=== PATIENT | female | born 1950 | race Caucasian/White ===

== ENCOUNTER → 2021-03-18 09:56 | Outpatient (CLI) | payer OTHER, SELFPAY ==
--- NOTE | ~2021-03-18 | DEXA_ITS ---
Bone Density Report Name: SLOAN CEBALLOS Age: 70 Sex: Female Ethnicity: White Date of : 1950 Indication: postmenopausal; screening for osteoporosis; parental hip fracture; Referring Provider: Edu, Keesha Study: Bone densitometry was performed. Exam Date: March 18, 2021 Accession number: [id number] Bone Density: Region BMD T-score Z-score Classification AP Spine (L1-L4) 1.061 0.1 2.2 Normal Femoral Neck (Left) 0.807 -0.4 1.4 Normal Total Hip (Left) 1.035 0.8 2.2 Normal Femoral Neck (Right) 0.770 -0.7 1.1 Normal Total Hip (Right) 0.990 0.4 1.9 Normal Total Hip Mean 1.013 0.6 2.1 Normal World Health Organization criteria for BMD impression classify patients as: Normal (T-score at or above -1.0), Osteopenia (T-score between -1.0 and -2.5), or Osteoporosis (T-score at or below -2.5). 10-year Fracture Risk: FRAX not reported because: All T-scores for Spine Total, Hip Total, Femoral Neck at or above -1.0 Clinical Information Provided by Patient: Parent has had a hip fracture Has used the following medications: Vitamin D Patient maximum height was 64 Menopause Age: 46 Does not regularly consume dairy products Drinks caffeinated beverages Onset of menses at age 14 Number of children 2 Impression: The patient has normal bone mass. The patient has risk factors, including: parental hip fracture. Discussion: BONE DENSITY IS ABOVE THE MINIMUM DESIRABLE LEVEL AT ALL SKELETAL SITES TESTED. This patient?s bone mineral density is above the minimum desirable level (T-score -1.0 or better) at all sites measured. The patient should follow a healthful lifestyle (good nutrition with adequate calcium and vitamin D, and appropriate weight-bearing exercise). Follow-Up: Consider repeating this study in 5 years or sooner if there is some new clinical indication. Reported by: ASYA on 03/18/2021 10:17:00 AM. Reviewed, dictated and finalized at location Miguel BARNEY
== END ==
PROVIDERS: PCP Internal Medicine; Visit Provider Internal Medicine
DX: Z78.0 Asymptomatic menopausal state (principal)
CPT/HCPCS: 77080

== ENCOUNTER 2022-11-18 13:05 | Outpatient (CLI) | payer MEDICARE, SELFPAY ==
--- NOTE | ~2022-11-18 | US_ITS ---
EXAMINATION: US thyroid DATE: 11/18/2022 13:40 INDICATION: Abnormal thyroid function tests. TECHNIQUE: Multiple ultrasound images of the thyroid were obtained. COMPARISON: None. FINDINGS: The right thyroid lobe measures 6.4 x 1.6 x 2.5 cm cm. The left thyroid lobe measures 7.6 x 3.5 x 4. 2 cm cm. In the right thyroid lobe, there is a 2.1 cm solid, isoechoic, wider than tall nodule with ill-defined margin without echogenic foci (TI-RADS TR3). In the left thyroid lobe, there is a 4.7 cm solid, isoechoic, wider than tall nodule with smooth margin without echogenic foci (TR3). IMPRESSION: 1. Multinodular goiter. Ultrasound-guided fine-needle aspiration of the 4.7 cm left thyroid nodule is recommended. Reviewed, dictated and finalized at location E.
== END 2022-11-18 13:06 | disposition home or self-care (01) ==
PROVIDERS: PCP Internal Medicine; Visit Provider Internal Medicine
DX: R94.6 Abnormal results of thyroid function studies (principal); E04.2 Nontoxic multinodular goiter
CPT/HCPCS: 76536

== ENCOUNTER 2023-12-30 14:16 | Outpatient (CLI) | payer MEDICARE, SELFPAY ==
[2023-12-30 15:04] LABS: Alanine Aminotransferase 29 U/L (6-35); Aspartate Amino Transferase 32 U/L (14-36)
== END 2023-12-30 14:17 | disposition home or self-care (01) ==
LOC: ANHLAB 14:18
PROVIDERS: PCP Internal Medicine; Visit Provider Podiatrist Foot & Ankle Surgery
DX: B35.1 Tinea unguium (principal)
CPT/HCPCS: 36415; 84450; 84460

== ENCOUNTER 2024-03-29 14:16 | Outpatient (CLI) | payer MEDICARE, SELFPAY ==
[2024-03-29 15:00] LABS: Alanine Aminotransferase 26 U/L (6-35); Aspartate Amino Transferase 25 U/L (14-36)
--- OUTSIDE RECORDS SUMMARY | 2024-03-29 15:07 | XMS_ITS | Clinical Summary ---
Author Organization [facility] Address [address] [place] [address] Care Team Providers Care Juvenile Counselor Name Role Phone Jayy Herrera MD Unavailable [phone] Keesha Sorensen MD Primary Care Provider [phone] Allergies Active Allergy Reactions Criticality Noted Date Comments Lisinopril Cough Reaction: Cough, Metformin Diarrhea Low 08/02/2020 Medications pen needle, diabetic (UNIFINE PENTIPS) 32 gauge x 5/32 needleIndications:diabe lobito 1 each daily 90 each 3 019 Active Additional Information Patient not taking.Reported on 10/25/2020 vit A/vit C/vit E/zinc/copper (PRESERVISION AREDS ORAL) Take by mouth daily Active Lactobacillus acidophilus (Probiotic) 10 billion cell capsule Take by mouth daily Active blood glucose diagnostic stripIndications:diabet es Please check your blood sugar before each meal(breakfast , lunch, dinner) and before bedtime. 120 each 3 021 Active chlorthalidone 25 mg tabletIndications:Hyper tension associated with diabetes (HCC) Take 1 tablet (25 mg total) by mouth daily 90 tablet 1 021 Active empagliflozin (JARDIANCE) 10 mg tabletIndications:type 2 diabetes mellitus Take 1 tablet (10 mg total) by mouth daily 90 tablet 1 021 Active losartan (COZAAR) 25 mg tabletIndications:Hyper tension associated with diabetes (HCC),Type 2 diabetes mellitus with hyperglycemia, without long-term current use of insulin (HCC) Take 1 tablet (25 mg total) by mouth daily 90 tablet 1 021 Active metoprolol XL (TOPROL-XL) 50 mg extended release tabletIndications:Hyper tension associated with diabetes (HCC) Take 1.5 tablets (75 mg total) by mouth daily 135 tablet 1 021 Active lancets (OneTouch Delica Plus Lancet) 33 gauge miscIndications:Type 2 diabetes mellitus with hyperglycemia, without long-term current use of insulin (HCC) Use one device daily for testing. 100 each 3 021 Active rosuvastatin (CRESTOR) 5 mg tabletIndications:Dysli pidemia with low high density lipoprotein (HDL) cholesterol with hypertriglyceridemia due to type 2 diabetes mellitus (HCC) Take 1 tablet (5 mg total) by mouth nightly 90 tablet 1 021 Active glipiZIDE (GLUCOTROL) 5 mg tabletIndications:type 2 diabetes mellitus Take 1 tablet (5 mg total) by mouth daily before dinner 30 tablet 5 021 Active Active Problems Problem Noted Date Diagnosed Date Chronic rhinitis 07/19/2020 Type 2 diabetes mellitus wit h hyperglycemia, without long-term current use of insulin 12/22/2018 Assessment & Plan (10/25/2020 11:49 AM CDT): Diagnosed in 2019 Had diarrhea on Metformin Control : in good control A1c 6.5% on 10/25/20 A1c 6.8% on 08/02/20 Kidney: normal GFR 78 on 08/02/20 Neuropathy : none. Plan: Patient to work on weight loss. Continue Glipizide 5 mg Qpm Continue jardiance 10 mg Qam Monitor sugars once /day and target am sugars 90-130 Hypoglycemia symptoms and treatment reviewed with patient. Call if having low sugars. Ophthalmology exam on regular basis. Assessment & Plan (08/02/2020 11:29 AM CDT): Diagnosed in 2019 Had diarrhea on Metformin Control : hyperglycemia since been off Glipizide A1c 6.8% on 08/02/20 Kidney: normal kidney functions in February/2020 Neuropathy : none. Plan: Refer patient to dietitian. Patient to work on weight loss. Restart Glipizide 5 mg Qpm Continue jardiance 10 mg Qam Monitor sugars once /day and target am sugars 90-130 Hypoglycemia symptoms and treatment reviewed with patient. Call if having low sugars. Ophthalmology exam on regular basis. Assessment & Plan (07/24/2020 7:49 PM CDT): A1c at goal of < 8.0. Cont current meds. Referred to Endocrinology per patient's request. Assessment & Plan (03/06/2020 5:15 PM SAP SOLUTIONS ARCHITECT): Pertinent diabetes labs reviewed: Lab Results Component Value Date HGBA1C 6.7 (H) 11/29/2019 GLUCOSE 114 11/29/2019 CREATININE 0.93 11/29/2019 LDL 116 (H) 11/18/2014 LDLCALC 55 08/25/2019 MALBCRTRAT 22.0 02/25/2018 Good. No new recommendations. Continue current medication for now. Assessment & Plan (11/29/2019 4:56 PM CDT): Discussed medication. Last A1c was great / much improved: Lab Results Component Value Date HGBA1C 6.8 (H) 08/25/2019 HGBA1C 12.0 (H) 12/22/2018 HGBA1C 7.9 (H) 02/25/2018 Talked about glipizide and the obesity-worsening effects without any benefit in terms of renal or cardiac protection. Try stopping glipizide but continue Jardiance. Might consider semaglutide if she needs to be started back on something besides glipizide. Assessment & Plan (08/25/2019 10:13 AM CDT): Check labs. See under morbid obesity -- consider medication adjustments. Assessment & Plan (01/26/2019 5:59 PM SAP SOLUTIONS ARCHITECT): Patient was taking her insulin 10 units tonight. However she stop taking the metformin because of diarrhea. And she has been off of the metformin for a month. So today I changed her over to synjardy which is a combination medication to see if it will help without the diarrhea. Assessment & Plan (12/29/2018 11:12 AM SAP SOLUTIONS ARCHITECT): Patient is currently taking metformin 500 mg twice a day we will increase that to a 1000 mg twice a day in a couple of weeks. She is also taking Lantus insulin 10 units daily. She is working on eating only 40 carbs per meal per day. Systolic murmur 08/26/2017 Assessment & Plan (03/06/2020 5:14 PM SAP SOLUTIONS ARCHITECT): Still present on exam today, no worse. Echo was surprisingly normal. Assessment & Plan (08/26/2017 10:00 AM CDT): Undiagnosed with strong family Hx of valvular disease. Bicuspid aortic? Get EKG today and TTE / Doppler to evaluate further. Generalized osteoarthritis 07/02/2013 Overview (05/22/2016): GENERAL OSTEOARTHROSIS Class 3 severe obesity due t o excess calories with serious comorbidity and body mass index (BMI) of 45.0 to 49.9 in adult 07/02/2013 Overview (07/19/2020): Assessment & Plan (07/24/2020 7:50 PM CDT): Weight reduction, daily exercise and dietary modifications recommended. Assessment & Plan (08/25/2019 10:13 AM CDT): BMI Follow-up includes: nutrition counseling, exercise counseling and education provided. She is counting her carbs and cals and doing well with that, disappointed she hasn't lost any weight. We discussed the fact that glipizide likely has everything to do with that. She is going to check with insurance to see if she might be able to get one of the GLP-1 or SGLT agents instead. Doesn't want Januvia or anything like it -- it gave her pancreatitis and he got pancreatic cancer a few years later. Assessment & Plan (01/26/2019 5:58 PM SAP SOLUTIONS ARCHITECT): Obesity is unchanged. Discussed the patient's BMI. The BMI is above average; BMI management plan is completed. General weight loss/lifestyle modification strategies discussed (elicit support from others; identify saboteurs; non-food rewards, etc). Assessment & Plan (12/29/2018 11:11 AM SAP SOLUTIONS ARCHITECT): Obesity is unchanged. Discussed the patient's BMI. The BMI is above average; BMI management plan is completed. General weight loss/lifestyle modification strategies discussed (elicit support from others; identify saboteurs; non-food rewards, etc). Assessment & Plan (03/07/2018 9:07 PM SAP SOLUTIONS ARCHITECT): Aware / working on weight loss. First noted 2013. BMI Follow-up includes: nutrition counseling, exercise counseling and education provided. Assessment & Plan (08/26/2017 10:01 AM CDT): BMI Follow-up includes: nutrition counseling, exercise counseling and education provided. Working on increased exercise now that she has had bilateral TKR. Assessment & Plan (07/28/2016 8:59 PM CDT): Obesity is unchanged. Increase exercise as tolerated; continue healthy diet. Regular aerobic exercise program discussed. Hypertension associated with diabetes 07/02/2013 Overview (07/24/2020): Assessment & Plan (10/25/2020 11:50 AM CDT): Controlled with medication - low salt diet - continue medication per PCP Assessment & Plan (08/02/2020 11:30 AM CDT): Controlled with medication - low salt diet - continue medication per PCP Assessment & Plan (07/24/2020 7:48 PM CDT): Clinically improved, continue current meds. Dyslipidemia with low high d ensity lipoprotein (HDL) cholesterol with hypertriglyceridemia due to type 2 diabetes mellitus 07/02/2013 Overview (07/19/2020): Assessment & Plan (07/24/2020 7:49 PM CDT): LDL not yet at goal of <70. Low chol diet recommended. Cont current meds. Assessment & Plan (03/06/2020 5:15 PM SAP SOLUTIONS ARCHITECT): Most recent lipid profile reviewed: Lab Results Component Value Date CHOL 134 08/25/2019 TRIG 230 (H) 08/25/2019 HDL 33 (L) 08/25/2019 LDL 116 (H) 11/18/2014 LDLCALC 55 08/25/2019 The current medical regimen is effective; continue present plan and medications. Assessment & Plan (11/29/2019 4:53 PM CDT): Most recent lipid profile reviewed: Lab Results Component Value Date CHOL 134 08/25/2019 TRIG 230 (H) 08/25/2019 HDL 33 (L) 08/25/2019 LDL 116 (H) 11/18/2014 LDLCALC 55 08/25/2019 Pretty good response to rosuvastatin. Triglycerides likely reflect intermittent hyperglycemia. Continue current medication for now. Assessment & Plan (08/25/2019 10:10 AM CDT): Most recent lipid profile reviewed: Lab Results Component Value Date CHOL 149 12/23/2018 TRIG 231 (H) 12/23/2018 HDL 35 (L) 12/23/2018 LDL 116 (H) 11/18/2014 LDLCALC 68 12/23/2018 Will repeat labs. Try to keep LDL ~70, no more than 100. Continue rosuvastatin. Assessment & Plan (01/26/2019 5:58 PM SAP SOLUTIONS ARCHITECT): Started on Crestor not only for cholesterol but for her diabetes. Assessment & Plan (12/29/2018 11:11 AM SAP SOLUTIONS ARCHITECT): Will start a statin at this time. Will sent prescription to pharmacy. Assessment & Plan (08/26/2017 10:02 AM CDT): Most recent lipid profile reviewed: Lab Results Component Value Date CHOL 228 (H) 07/28/2016 TRIG 246 (H) 07/28/2016 HDL 41 07/28/2016 LDL 116 (H) 11/18/2014 LDLCALC 137.80 (H) 07/28/2016 Based on this last set of lipids I would recommend going back on a statin, but we'll check lipids again today before making a decision. Assessment & Plan (07/28/2016 5:39 PM CDT): Lipid abnormalities are unchanged. Pharmacotherapy as ordered. Lipids will be reassessed in 1 year. Osteoarthritis of knee 02/16/2009 Overview (05/22/2016): Knee osteoarthritis Resolved Problems Problem Noted Date Diagnosed Date Resolved Date Transition of care performed with sharing of clinical summary 12/29/2018 08/25/2019 Assessment & Plan (12/29/2018 11:12 AM SAP SOLUTIONS ARCHITECT): I, Elizabeth Majano, SENIOR POLICY ANALYST have personally reviewed pertinent Hospital/ER data including [employer] and Care Everywhere if available. This patient's discharge medication list has been reviewed and reconciled with her medication list in the office chart and has also been reviewed with patient and/or caregiver. I have noted any changes. Generalized abdominal pain 12/21/2018 1 02/28/2018 Umbilical hernia with obstru ction, without gangrene 12/21/2018 08/25/2019 Assessment & Plan (12/21/2018 12:27 PM SAP SOLUTIONS ARCHITECT): Discussed with Dr. Holden. Send to the ER. Umbilical hernia with obstru ction, without gangrene 12/21/2018 12/29/2018 SBO (small bowel obstruction) (CMS/[facility]) 12/21/2018 08/25/2019 BMI 45.0-49.9, adult 08/26/201707/19/ 021 Assessment & Plan (03/06/2020 5:13 PM SAP SOLUTIONS ARCHITECT): .BMI Follow-up includes: nutrition counseling, exercise counseling and education provided . Assessment & Plan (11/29/2019 1:44 PM CDT): BMI Follow-up includes: nutrition counseling, exercise counseling and education provided. Assessment & Plan (01/26/2019 5:58 PM SAP SOLUTIONS ARCHITECT): Body mass index is 43.77 kg/m . BMI Follow-up includes: nutrition counseling, exercise counseling and education provided. Assessment & Plan (12/29/2018 11:09 AM SAP SOLUTIONS ARCHITECT): Body mass index is 43.78 kg/m . BMI Follow-up includes: nutrition counseling, exercise counseling and education provided. Assessment & Plan (03/07/2018 9:09 PM SAP SOLUTIONS ARCHITECT): BMI Follow-up includes: nutrition counseling, exercise counseling and education provided. Impaired fasting glucose 06/26/200810/2019 Overview (05/22/2016): IMPAIRED FASTING GLUCOSE Assessment & Plan (03/07/2018 9:08 PM SAP SOLUTIONS ARCHITECT): Lab Results Component Value Date HGBA1C 7.9 (H) 02/25/2018 HGBA1C 7.3 (H) 08/26/2017 HGBA1C 6.7 (H) 07/28/2016 Progressed now firmly into type 2 DM territory. Will need to start on metformin. Allergic to ACEI (lisinopril) -- contraindicated. Assessment & Plan (08/26/2017 10:02 AM CDT): Lab Results Component Value Date HGBA1C 6.7 (H) 07/28/2016 Recheck today. Start metformin if worse. Assessment & Plan (07/28/2016 5:38 PM CDT): A1c today. Current medications have been reviewed and will be continued. Continue improving lifestyle changes. Benign essential hypertension 02/16/1998 07/19/2020 Overview (05/23/2016): Benign essential HTN Assessment & Plan (03/06/2020 5:15 PM SAP SOLUTIONS ARCHITECT): Continued fair control on current regimen (chlorthalidone + metoprolol). Assessment & Plan (11/29/2019 4:52 PM CDT): Blood pressure 120/70, pulse 78, height 160 cm (5' 2.99 ), weight 115.7 kg (255 lb), SpO2 98 %, not currently . The current medical regimen is effective; continue present plan and medications. Assessment & Plan (08/25/2019 10:10 AM CDT): Blood pressure 120/78, pulse 85, height 160 cm (5' 2.99 ), weight 113.9 kg (251 lb), SpO2 97 %, not currently . The current medical regimen is effective; continue present plan and medications. Assessment & Plan (01/26/2019 5:57 PM SAP SOLUTIONS ARCHITECT): BP 136/80 (BP Location: Left arm, Patient Position: Sitting) Pulse 74 Temp 36.1 C (97 F) Resp 16 Ht 160 cm (5' 2.99 ) Wt 112 kg (247 lb) SpO2 98% BMI 43.77 kg/m Patient was not taking losartan or her Crestor until I explained to her why these medications were needed. She has agreed to start taking them. Assessment & Plan (12/29/2018 11:10 AM SAP SOLUTIONS ARCHITECT): BP 134/80 (BP Location: Right arm, Patient Position: Sitting) Pulse 80 Temp 36.1 C (97 F) Resp 17 Ht 160 cm (5' 2.99 ) Wt 112.1 kg (247 lb 1.6 oz) SpO2 98% BMI 43.78 kg/m Blood pressure is good today. Will start a low-dose Arb patient is allergic to an Michael inhibitor secondary to her diabetes. Will also start 81 mg aspirin. Assessment & Plan (03/07/2018 9:09 PM SAP SOLUTIONS ARCHITECT): Blood pressure 160/100, pulse 67, resp. rate 15, height 161.3 cm (5' 3.5 ), weight 126.1 kg (278 lb), SpO2 98 %, not currently . BP too high -- will need to work on this too. Assessment & Plan (08/26/2017 10:03 AM CDT): Cannot determine whether this is well controlled because she didn't take her AM medications before coming in. Assessment & Plan (07/28/2016 5:38 PM CDT): Hypertension is unchanged. Continue current treatment regimen. Blood pressure will be reassessed at the next regular appointment. Incarcerated hernia 07/20/19 21 Immunizations Name Administration Dates Next Due Influenza, Trivalent, IM (MDV) 11/07/2013 Influenza, Unspecified 11/29/2019(Deferr ed: Patient Refused),11/29/2019(Deferred: Patient Refused),11/17/2019(Deferred: Patient Refused),11/28/2015 Pfizer SARS-CoV-2 Monovalent Vaccination (12+ Yrs) PURPLE 04/21/2020,03/31/2020 Pneumococcal Polysaccharide PPV23 10/17/2014 Td, adsorbed 11/29/1998 Surgical History Surgery Date Site/Laterality Comments HEMORRHOID SURGERY HEMORRHOIDECTOMY OTHER SURGICAL HISTORY 02/16/1997 - 02/15/1998 D&C OTHER SURGICAL HISTORY fissure in rectum: repair OTHER SURGICAL HISTORY Menometrorrhagia: D&C REPLACEMENT TOTAL KNEE 02/16/2014 - 02/15/2015 Bilateral HERNIA REPAIR 02/16/2018 - 02/15/2019 Medical History Medical History Date Comments Hypertension Hypertension Hyperlipidemia Hyperlipidemia Osteoarthritis Osteoarthritis Hx Other Medical 1981 fissure in rect um; Outcome: successful Hx Other Medical 1998 Menometrorrhagi a; Outcome: free of disease Umbilical hernia with obstru ction, without gangrene 12/21/2018 Diabetes mellitus (HCC) Family History Medical History Relation Name Comments Other Father heart valve pro blem; Prostate cancer Father Valvular heart disease Father VALVU LAR HEART DISEASE; Hypertension Maternal Grandmother Other Maternal Grandmother old age ; Cause of : old age Thyroid disease Maternal Grandmother Thyr oid disorder; Hypertension Mother Macular degeneration Mother macular degeneration; Other Mother back problems; /thyroid mass; Thyroid disease Mother Thyroid diso rder; Hypothyroidism Other Family histor y of Hypothyroidism; Hyperthyroidism Sister 2 Hyperthyroid ism; Obesity Sister 3 Obesity; Obesity Sister 4 Obesity; [facility] Hyperthyroidism Sister 5 Hyperthyroid ism; radioactive iodine [facility] 07/28/2013 -[place] Other Son 2 Alive and well; [facility] 07/28/2013 -[place] Obesity Son 3 Obesity; [facility] [place] Relation Name Status Comments Father Maternal Grandmother (Age 106) Mother Other Sister 1 Alive Sister 2 Sister 3 Sister 4 Sister 5 Son 1 Alive Son 2 Son 3 Social History Tobacco Use Types Packs/Day Years Used Date Smoking Tobacco: Never Smokeless Tobacco: Never Tobacco Cessation:Counseling Given: No Alcohol Use Standard Drinks/Week Comments Yes 0 (1 standard drink = 0.6 oz pur e alcohol) PHQ-2 Answer Date Recorded PHQ-2 Total Score (If total score is 3 or more points, staff should administer the PHQ-9) 0 07/19/2020 Comments Unknown Sex and Gender Information Value Date Recorded Sex Assigned at Not on file Legal Sex Female 11:47 AM SAP SOLUTIONS ARCHITECT Gender Identity Not on file Sexual Orientation Not on file Obstetrics History Last Filed Vital Signs Vital Sign Reading Time Taken Comments Blood Pressure 136/68 10/25/2020 10:43 AM CDT Pulse 87 07/19/2020 10:17 AM CDT Temperature 36.4 C (97.5 F) 07/19/2020 10:17 AM CDT Respiratory Rate 20 07/19/2020 10:17 AM CDT Oxygen Saturation 96% 07/19/2020 10:17 AM CDT Inhaled Oxygen Concentration - - Weight 115.9 kg (255 lb 8 oz) 10/25/2020 10:43 A M CDT Height 157.5 cm (5' 2 ) 10/25/2020 10:43 AM CDT Body Mass Index 46.73 10/25/2020 10:43 AM CDT Plan of Treatment Health Maintenance Due Date Last Done Comments Osteoporosis Screening-Bone Density Scan 1950 Hepatitis B Screening 07/09/1969 DTaP/Tdap/Td Vaccine (1 - Tdap) 11/30/1998 9 Zoster Vaccine (1 of 2) 07/09/2001 Well Visit 65+ 08/24/2020 08/25/2019, 07/28/2016 Hemoglobin A1C 04/24/2021 10/25/2020, 07/17, 08/02/2020, Additional history exists Depression Screening 07/19/2021 07/19/2020, 03/06/2020, 11/29/2019, Additional history exists Fall Risk Assessment 07/19/2021 07/19/2020, 03/06/2020, 11/29/2019, Additional history exists Foot Exam 07/19/2021 07/19/2020, 02/16, 11/29/2019, Additional history exists Albumin Creatinine Ratio, Urine 08/02/2021 08/02/2020, 03/06/2020, 08/25/2019, Additional history exists eGFR 08/02/2021 08/02/2020, 02/16, 11/29/2019, Additional history exists Lipid Panel 12/18/2021 12/18/2020, 07/17, 08/25/2019, Additional history exists Dilated Eye Exam 03/08/2022 03/08/2020, 06/02/2018 Covid-19 Vaccine (2023- 5 season) 2023 04/21/2020, 03/31/2020 Colon Cancer Screening-Colonoscopy 07/29/2026 07/29/2016 Pneumococcal vaccine 65+ Discontinued 10/17/2014 Influenza Vaccine Discontinued 11/28/2015, 11/07/2013 Breast Cancer Screening-Mammogram Discontinued 017 Colon Cancer Screening-CT Colonography Discontinued 07/29/2016 Colon Cancer Screening-DNA Stool Discontinued 07/30/19 17 Colon Cancer Screening-FIT Discontinued 07/29/2016 Colon Cancer Screening-Sigmoidoscopy Discontinued 07/29/2016 Hepatitis C Screening Completed 08/25/2019 Procedures Procedure Name Priority Date/Time Associated Diagnosis Comments POCT HEMOGLOBIN A1C Routine 10/25/2020 11:31 AM CDT Type 2 diabetes mellitus with hyperglycemia, without long-term current use of insulin (CMS/HCC) (HCC) EGFR Routine 08/02/2020 11:28 AM CDT Hypertension associated with diabetes (CMS/HCC) Dyslipidemia with low high density lipoprotein (HDL) cholesterol with hypertriglyceridemia due to type 2 diabetes mellitus (CMS/HCC) LIPID PANEL Routine 08/02/2020 11:28 AM CDT Hypertension associated with diabetes (CMS/HCC) Dyslipidemia with low high density lipoprotein (HDL) cholesterol with hypertriglyceridemia due to type 2 diabetes mellitus (CMS/HCC) Type 2 diabetes mellitus with hyperglycemia, without long-term current use of insulin (CMS/HCC) ALBUMIN CREATININE RATIO, URINE Routine 08/02/2020 11:28 AM CDT Hypertension associated with diabetes (CMS/HCC) Type 2 diabetes mellitus with hyperglycemia, without long-term current use of insulin (CMS/HCC) DIABETIC EYE EXAM Routine 03/08/2020 HEPATITIS C ANTIBODY Routine 08/25/2019 10:11 AM CDT Need for hepatitis C screening test DIABETES FOOT EXAM Routine 12/29/2018 MAMMOGRAPHY Routine 07/29/2016 COLONOSCOPY Routine 07/29/2016 from Last 3 Months or Most Recently Relevant to Health Maintenance Results * POCT hemoglobin A1c (10/25/2020 11:31 AM CDT) Hemoglobin A1C, POC 6.5 Blood specimen (specimen) 10/25/2020 11:31 AM CDT Zuleyka Alexander MD POINT OF CARE TEST ORDERABLES Final Result * eGFR (08/02/2020 11:28 AM CDT) eGFR 78 mL/min/1.7 3 m2 [facility] ([place]) Comment: Interpretive Data Reference Interval Normal >/= 90 mL/min/1.73m2 Mildly decreased* 60 - 89 mL/min/1.73m2 Mildly to moderately decreased 45 - 59 mL/min/1.73m2 Moderately to severely decreased 30 - 44 mL/min/1.73m2 Severely decreased 15 - 29 mL/min/1.73m2 Kidney Failure < 15 mL/min/1.73m2 *Relative to young adult level Estimated glomerular filtration rate is determined by the CKD-EPI equation recommended by the National Kidney Foundation (KDIGO 2012 Clinical Practice Guideline for the Evaluation and Management of Chronic Kidney Disease. Kidney Intnl Suppl Feb 2012;3:1). The CKD-EPI equation should not be used for patients with unstable renal function and has not been validated in children and those over 70. Current interpretive data was last reviewed 2020 Blood specimen (specimen) 08/02/2020 11:28 AM CDT 08/02/2020 1:28 PM CDT Sharmila Carter DO LAB BLOOD ORDERABLES Final Result Performing Organization Address [facility] de Phone Number [facility] ([place]) [address] [place] [address] * Albumin Creatinine Ratio, Urine (08/02/2020 11:28 AM CDT) Albumin Ur <12.0 mg/L [facility] ([place]) Comment: Interpretive Data No reference range established. Current interpretive data was last revised 2018. Testing performed by: [facility], [address] [place] [address]., [id number] Creatinine Ur 80.1 mg/dL [facility] ([place]) Comment: Interpretive Data No reference range established. Current interpretive data was last revised 2018. Testing performed by: [facility], [address] [place] [address]., [id number] Albumin Creatinine Ratio, Ur <15 1 - 29 mg/g [facility] ([place]) Comment:Testing performed by : [facility], [address] [place] [address]., [id number] Urine 08/02/2020 11:2 8 AM CDT 08/02/2020 7:42 PM CDT Sharmila Carter DO LAB URINE ORDERABLES Final Result Performing Organization Address [facility] de Phone Number [facility] ([place]) [address] [facility] [place] [address] * (ABNORMAL) Lipid panel (08/02/2020 11:28 AM CDT) Cholesterol 162 30 - 199 mg/dL [facility] ([place]) Comment: Interpretive Data Ages < or = 19 years Acceptable: <170 mg/dL Borderline high: 170-199 mg/dL High: >or= 200 mg/dL Ages > or = 20 years Desirable: <200 mg/dL Borderline high: 200-239 mg/dL High: >or= 240 mg/dL Literature References: 1. Expert Panel on Integrated Guidelines for Cardiovascular Health and Risk Reduction in Children and Adolescents. Pediatrics 2011;128:S213 2. NCEP Expert Panel. Circulation 2003;110:227 Current Interpretive Data was last revised on 2017. Triglycerides 202(H) <=149 mg/dL [facility] ([place]) Comment: Interpretive Data Ages < or = 9 years Acceptable: <75 mg/dL Borderline high: 75-99 mg/dL High: >or= 100 mg/dL Ages 10 to 20 years Acceptable: <90 mg/dL Borderline high: 90-129 mg/dL High: >or= 130 mg/dL Ages > or = 20 years Desirable: <150 mg/dL Borderline high: 150-199 mg/dL High: 200-499 mg/dL Very high: >or= 499 mg/dL Literature References: 1. Expert Panel on Integrated Guidelines for Cardiovascular Health and Risk Reduction in Children and Adolescents. Pediatrics 2011;128:S213 2. NCEP Expert Panel. Circulation 2003;110:227 Current Interpretive Data was last revised on 2017. HDL 39(L) >=40 mg/dL BRYAN OROZCO (CLAUDIO) Comment: Interpretive Data Ages < or = 19 years Acceptable: >45 mg/dL Borderline low: 40-45 mg/dL Low: <40 mg/dL Ages > or = 20 years Desirable: >or= 60 mg/dL Low: <40 mg/dL Literature References: 1. Expert Panel on Integrated Guidelines for Cardiovascular Health and Risk Reduction in Children and Adolescents. Pediatrics 2011;128:S213 2. NCEP Expert Panel. Circulation 2003;110:227 Current Interpretive Data was last revised on 2017. LDL, calculated 83 <=129 mg/dL BRYAN OROZCO (CLAUDIO) Comment: Interpretive Data Ages < or = 19 years Acceptable: <110 mg/dL Borderline high: 110-129 mg/dL High: >or= 130 mg/dL Ages > or = 20 years Optimal: <100 mg/dL Near optimal: 100-129 mg/dL Borderline high: 130-159 mg/dL High: >160 mg/dL Literature References: 1. Expert Panel on Integrated Guidelines for Cardiovascular Health and Risk Reduction in Children and Adolescents. Pediatrics 2011;128:S213 2. NCEP Expert Panel. Circulation 2003;110:227 Current Interpretive Data was last revised on 2017. Non-HDL Cholesterol 123 mg/dL BRYAN OROZCO (EMORY) Comment: Interpretive Data Ages < or = 19 years Acceptable: <120 mg/dL Borderline high: 120-144 mg/dL High: >145 mg/dL Ages > or = 20 years When triglycerides are >200 mg/dL, Non-HDL cholesterol is a secondary target of therapy with treatment goals that are 30 mg/dL greater than the LDL cholesterol target. Literature References: 1. Expert Panel on Integrated Guidelines for Cardiovascular Health and Risk Reduction in Children and Adolescents. Pediatrics 2011;128:S213 2. NCEP Expert Panel. Circulation 2004;110:227 Current Interpretive Data was last revised on 2017. Chol/HDL ratio 4 CM OROZCO (EMORY) Blood specimen (specimen) 08/02/2020 11:28 AM CDT 08/02/2020 1:28 PM CDT Sharmila Carter DO LAB BLOOD ORDERABLES Final Result SARITAJG OROZCO (EMORY) 1 [facility] Department [place] [address] * Diabetic Eye Exam (03/08/2020) Historical Provider HEALTH MAINTENANCE Final Result * Hepatitis C antibody (08/25/2019 10:11 AM CDT) Hep C Ab Nonreactive Nonreactive BRYAN [facility] Comment: Interpretive Data Nonreactive: Antibodies to HCV not detected. Does NOT exclude the possibility of recent exposure to HCV. Equivocal: Equivocal for HCV antibodies. Supplemental molecular testing will be automatically performed to determine infection status in accordance with current CDC screening recommendations. Reactive: Positive for HCV antibodies. This may represent current or past HCV infection. Supplemental molecular testing will be automatically performed to determine current infection status in accordance with current CDC screening recommendations. Interpretive data was last revised on 2019. Testing performed by: [facility], [facility] [facility], [place]., [address] Blood specimen (specimen) 08/25/2019 10:11 AM CDT 08/25/2019 4:15 PM CDT Alberto Holden MD LAB MICROBIOLOGY - GENERAL ORD ERABLES Final Result BRYAN [facility] [address] Department [place] [address] * DIABETES FOOT EXAM (12/29/2018) Diabetic Foot Exam Normal Historical Provider HEALTH MAINTENANCE Final Result * COLONOSCOPY (07/29/2016) Colonoscopy Unknown Comment:Patient cannot recal l. Anatomical Region Laterality Modality Other Historical Provider HEALTH MAINTENANCE Final Result * MAMMOGRAPHY (07/29/2016) Mammogram Unknown Comment:Patient declined. Anatomical Region Laterality Modality Other Historical José HYLTON HEALTH MAINTENANCE Final Result from Last 3 Months or Most Recently Relevant to Health Maintenance Insurance [facility] MEDICARE AARP [facility] REF [facility] Address: [address] [address] [place] [address] [facility] Advance Directives For more information, please contact: [phone] * Full Code (Latest Code Status on File) Date Activated Date Inactivated Comments 12/21/2018 6:10 PM 12/24/2018 5:48 PM Care Teams Juvenile Counselor Relationship Specialty Start Date End Date Keesha Sorensen MD [address] [place] [address] PCP - General Internal Medicine 11/27/21 Jayy Herrera MD [address] [facility] / [facility] [address] [address] Referring Physician Ophthalmology 07/19/20
--- OUTSIDE RECORDS SUMMARY | 2024-03-29 15:07 | XMS_ITS | Referral Summary ---
Author Organization [facility] Address [address] [facility] [place] [address] Care Team Providers Care Senior Qualitative Researcher Name Role Phone Renato Mckenzie MD Unavailable [phone] Keesha Sorensen MD Primary Care Provider [phone] Source Comments [facility],non-owned Affiliates and Associated Physician Practices is amultiple site organization consisting of ambulatory clinics and hospital sitesin [place], [place], [place] and [place]. This disclosure is being madepursuant to the Care Everywhere program and may not contain all information available regarding this patient. Last updated 17.[facility] Encounters Date Type Department Care Team Description 12/31/2023 Travel 12/31/2023 11:30 AM HAND HARDENER Office Visit [facility] - SEARCH ENGINE MARKETING STRATEGIST [address] [facility] [address] [place] [id number] Jennifer Bertrand, BOAT LOADER HELPER-HIDE INSPECTOR AND SORTER Endometrial cancer (HCC) (Primary Dx) from Last 3 Months Allergies No known active allergies Medications * Be aware that medications may not be up to date on this document. Alwaysverify current medications with the patient. Medication Sig Dispensed Refills Start Date End Date Status rosuvastatin (Crestor) 5 MG tablet Take 1 (one) tablet by mouth once daily Active LOSARTAN POTASSIUM PO Take 100 mg by mouth once daily Active CHLORTHALIDONE PO Take 25 mg by mouth once daily Active Multiple Vitamins-Minerals (PRESERVISION AREDS PO) Take by mouth once daily Active chlorthalidone (Hygroton) 25 MG tablet 12/01/2022 Active metoprolol succinate XL 24hr (Toprol XL) 50 MG tablet Take 1.5 (one and one-half) tablets by mouth once daily 08/27/2022 Active Rybelsus 14 MG tablet Take 1 (one) tablet by mouth once daily 12/11/2022 Active Active Problems Problem Noted Date Diagnosed Date 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 We will aim for A1c less than 7%. Last Assessment & Plan: Diagnosed in 2019 Had diarrhea on Metformin [...] low sugars. Ophthalmology exam on regular basis. Class 3 severe obesity due t o excess calories with serious comorbidity and body mass index (BMI) of 45.0 to 49.9 in adult 07/02/2013 Overview (04/03/2022): -Pt has elevated weight with BMI Body mass index is 43.77 kg/m ., and will need to work hard on reducing carbohydrates and total calories. -You may use the free smart phone apps such as R17 to help track calories and try to reduce by 15% every 4 weeks. -Patient will work on reducing total portion sizes to try to reduce the size of their stomach. -Exercising about 30 minutes every day with cardio work outs. -Avoid regular soda, juices and alcohol. -Recommended limiting GPS foods (Grains, Potatoes, Sugars) as much as possible. Eating food that it is not highly processed and that they can recognize. Eating when they are hungry and not by a time schedule. -Lets aim to have them loose about 1 pound per week and 5 pounds per month. Last Assessment & Plan: Weight reduction, daily exercise and dietary modifications recommended. Dyslipidemia with low high d ensity lipoprotein (HDL) cholesterol with hypertriglyceridemia due to type 2 diabetes mellitus 07/02/2013 Overview (04/03/2022): On rosuvastatin 20 mg daily; will aim for LDL less than 70; at goal. Last Assessment & Plan: LDL not yet at goal of <70. Low chol diet recommended. Cont current meds. Generalized osteoarthritis 07/02/2013 Overview (04/03/2022): GENERAL OSTEOARTHROSIS GENERAL OSTEOARTHROSIS Hypertension associated with diabetes 07/02/2013 Overview (04/03/2022): Not controlled; continue with metoprolol, chlorthalidone and losartan with close follow up. Last Assessment & Plan: Controlled with medication - low salt diet - continue medication per PCP Osteoarthrosis involving lower leg 2011 Overview (05/12/2015): 2015 IMO Updt Social History Tobacco Use Types Packs/Day Years Used Date Smoking Tobacco: Never Smokeless Tobacco: Never Alcohol Use Standard Drinks/Week Comments Not Currently 0 (1 standard drink = 0.6 oz pur e alcohol) Sex and Gender Information Value Date Recorded Sex Assigned at Not on file Gender Identity Not on file Sexual Orientation Not on file Last Filed Vital Signs Vital Sign Reading Time Taken Comments Blood Pressure 134/72 12/31/2023 11:13 AM HAND HARDENER Pulse - - Temperature - - Respiratory Rate - - Oxygen Saturation - - Inhaled Oxygen Concentration - - Weight 100.5 kg (221 lb 9.6 oz) 024 11:13 AM HAND HARDENER Height 162.6 cm (5' 4 ) 12/31/2023 11:1 3 AM HAND HARDENER Body Mass Index 38.04 12/31/2023 11:13 AM HAND HARDENER Plan of Treatment Upcoming Encounters Date Type Department Care Team (Late st Contact Info) Description 12/29/2024 11:00 AM HAND HARDENER Office Visit [facility] - SEARCH ENGINE MARKETING STRATEGIST [address] [place] [address] Jennifer Bertrand, BOAT LOADER HELPER-HIDE INSPECTOR AND SORTER [address] [facility] [address] [place] [address] Procedures Procedure Name Priority Date/Time Associated Diagnosis Comments BASIC METABOLIC PANEL (CALCIUM TOTAL) 02/15/2007 10:52 AM HAND HARDENER from Last 3 Months or Most Recently Relevant to Health Maintenance Results * (ABNORMAL) BASIC METABOLIC PANEL (CALCIUM TOTAL) (02/15/2007 10:52 AM HAND HARDENER) Glucose 104(H) 65 - 99 mg/dL [facility] Comment:FASTING REFERENCE IN TERVAL BUN 18 7 - 25 mg/dL [facility] Creatinine 0.72 0.50 - 1.20 mg/dL [facility] eGFR by MDRD >60 > OR = 60 mL/min/1.7 3m2 [facility] eGFR by MDRD >60 > OR = 60 mL/min/1.7 3m2 [facility] BUN/Creatinine Ratio 25(H) 6 - 22 (calc) [facility] Sodium 141 135 - 146 mmol/L [facility] Potassium 4.2 3.5 - 5.3 mmol/L [facility] Chloride 105 98 - 110 mmol/L [facility] CO2 29 21 - 33 mmol/L [facility] Calcium 9.3 8.6 - 10.2 mg/dL [facility] Comment: REPORT COMMENT: FASTING Test Performed at: [id number] [address] RENATO CHEUNG MD 02/15/2007 10:5 2 AM HAND HARDENER 02/15/2007 9:44 PM HAND HARDENER Juan R Hoang II, MD LAB - CHEMISTRY ORD ERABLES [facility] [address] [place] [address] from Last 3 Months or Most Recently Relevant to Health Maintenance Administered Medications Care Teams Senior Qualitative Researcher Relationship Specialty Start Date End Date Keesha Sorensen MD [address] [facility] [address] [place] [address] PCP - General 04/02/22 Renato Mckenzie MD Orthopedic Surgery 04/09/11
--- OUTSIDE RECORDS SUMMARY | 2024-03-29 15:07 | XMS_ITS | Clinical Summary ---
Author Organization [facility] Address [address] [place] [address] Care Team Providers Care Diesel Engine Ii Pipe Fitter Name Role Phone Renato Mckenzie MD Unavailable [phone] Keesha Sorensen MD Primary Care Provider [phone] Source Comments [facility],non-owned Affiliates and Associated Physician Practices is amultiple site organization consisting of ambulatory clinics and hospital sitesin [place], [place], [place] and [place]. This disclosure is being madepursuant to the Care Everywhere program and may not contain all information available regarding this patient. Last updated 17.[facility] Allergies No known active allergies Medications * [...] the free smart phone apps such as [employer] to help track calories and try to [...] leg 2011 Overview (05/12/2015): 2015 IMO Updt Encounters Date Type Department Care Team Description 12/31/2023 11:30 AM SAND CARRIER Office Visit [facility] - NURSE RECEPTIONIST [address] [facility] [address] [place] [phone] Jennifer Bertrand, MARIUSZ-MARINE EQUIPMENT SALES ENGINEER Endometrial cancer (HCC) (Primary Dx) 12/31/2023 Travel from Last 3 Months Social History Tobacco Use Types Packs/Day Years [...] Comments Blood Pressure 134/72 12/31/2023 11:13 AM SAND CARRIER Pulse - - Temperature - - Respiratory Rate - - Oxygen Saturation - - Inhaled Oxygen Concentration - - Weight 100.5 kg (221 lb 9.6 oz) 024 11:13 AM SAND CARRIER Height 162.6 cm (5' 4 ) 12/31/2023 11:1 3 AM SAND CARRIER Body Mass Index 38.04 12/31/2023 11:13 AM SAND CARRIER Plan of Treatment Upcoming Encounters Date Type Department Care Team (Late st Contact Info) Description 12/29/2024 11:00 AM SAND CARRIER Office Visit [facility] - NURSE RECEPTIONIST [address] [place] [address] Jennifer Bertrand, HAND PAINT MIXER-MARINE EQUIPMENT SALES ENGINEER [address] [facility] [address] [place] [address] Health Maintenance Due Date Last Done Comments BONE DENSITY TESTING 1950 COLOGUARD (AGES 45-75) - COLON CA SCREENING 1950 COLON MONITORING 1950 COLONOSCOPY - COLON CA SCREENING 1950 CT COLONOGRAPHY - COLON CA SCREENING 1950 Colorectal Cancer Screening 1950 FIT - COLON CA SCREENING 1950 FLEX SIG - COLON CA SCREENING 1950 MAMMOGRAM 1950 HEPATITIS C SCREENING 07/05/1969 DTAP/TDAP/TD VACCINES (1 - Tdap) 07/09/1970 PNEUMOCOCCAL VACCINE 50+ (1 of 2 - PCV) 07/09/1970 ZOSTER VACCINE (1 of 2) 07/09/2001 DIABETES RETINOPATHY SCREENING 04/03/2022 DIABETES-FOOT EXAM WITH MONOFILAMENT 04/03/2022 COVID-19 VACCINE ( season) 2023 12/30/2021, 11/22/2020, 04/21/2020, Additional history exists INFLUENZA VACCINE (#1) 2023 11/28/2015, 2013 DEPRESSION SCREENING 02/17/2024 DIABETES - URINE PROTEIN SCREENING 02/17/2024 02/27/2023, 06/10/2022, 11/23/2020 MEDICARE AWV CALENDAR YEAR 2024 DIABETES-SERUM CREATININE 02/28/20242023, 02/27/2023, 02/27/2023, Additional history exists DIABETES-HGB A1C 03/06/2024 09/04/2023, 01/2024, 06/10/2022, Additional history exists Respiratory Syncytial Virus (RSV) Vaccine Pt: or over 60 yrs (1 - 1-dose 75+ series) 07/09/2026 HEPATITIS B VACCINE Aged Out No longe r eligible based on patient's age to complete this topic HIB VACCINE Aged Out No longer eligi ble based on patient's age to complete this topic HPV VACCINE Aged Out No longer eligi ble based on patient's age to complete this topic MENINGOCOCCAL (Group B) VACCINE Aged Out No longer eligible based on patient's age to complete this topic MENINGOCOCCAL VACCINE Aged Out No denny shalom eligible based on patient's age to complete this topic Procedures Procedure Name Priority Date/Time Associated Diagnosis Comments BASIC METABOLIC PANEL (CALCIUM TOTAL) 02/15/2007 10:52 AM SAND CARRIER from Last 3 Months or Most Recently Relevant to Health Maintenance Results * (ABNORMAL) BASIC METABOLIC PANEL (CALCIUM TOTAL) (02/15/2007 10:52 AM SAND CARRIER) Glucose 104(H) 65 - 99 mg/dL [facility] [...] Comment: REPORT COMMENT: FASTING Test Performed at: [facility] [id number] [place] [address] RENATO CHEUNG MD 02/15/2007 10:5 2 AM SAND CARRIER 02/15/2007 9:44 PM SAND CARRIER Juan R Hoang II, MD LAB - CHEMISTRY ORD ERABLES [facility] Organization Address City/State/ZIP Co de Phone Number [facility] [address] [place] [address] from Last 3 Months or Most Recently Relevant to Health Maintenance Care Teams Diesel Engine Ii Pipe Fitter Relationship Specialty Start Date End Date Keesha Sorensen MD [address] [facility] [address] [place] [address] PCP - General 04/02/22 Renato Mckenzie MD Orthopedic Surgery 04/09/11
--- OUTSIDE RECORDS SUMMARY | 2024-03-29 15:07 | XMS_ITS | Patient Health Summary ---
Author Organization [facility] Address [address] [place] [address] Care Team Providers Care Commercial Diver Name Role Phone Renato Mckenzie MD Unavailable [phone] Keesha Sorensen MD Primary Care Provider [phone] Note from [facility],non-owned Affiliates and Associated Physician Practices is amultiple site organization consisting of ambulatory clinics and hospital sitesin [place], [place], [place] and [place]. This disclosure is being madepursuant to the Care Everywhere program and may not contain all information available regarding this patient. Last updated 17.[facility] Allergies No known active allergies Medications * Be aware that medications may not be up to date on this document. Alwaysverify current medications with the patient. 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 Chronic rhinitis 07/19/2020 Type 2 diabetes mellitus wit h hyperglycemia, without long-term current use of insulin 12/22/2018 Class 3 severe obesity due t o excess calories with serious comorbidity and body mass index (BMI) of 45.0 to 49.9 in adult 07/02/2013 Dyslipidemia with low high d ensity lipoprotein (HDL) cholesterol with hypertriglyceridemia due to type 2 diabetes mellitus 07/02/2013 Generalized osteoarthritis 07/02/2013 Hypertension associated with diabetes 07/02/2013 Osteoarthrosis involving lower leg 2011 Social History Tobacco Use Types Packs/Day Years [...] Comments Blood Pressure 134/72 12/31/2023 11:13 AM FOOD AND NUTRITION TEACHER Pulse - - Temperature - - Respiratory Rate - - Oxygen Saturation - - Inhaled Oxygen Concentration - - Weight 100.5 kg (221 lb 9.6 oz) 024 11:13 AM FOOD AND NUTRITION TEACHER Height 162.6 cm (5' 4 ) 12/31/2023 11:1 3 AM FOOD AND NUTRITION TEACHER Body Mass Index 38.04 12/31/2023 11:13 AM FOOD AND NUTRITION TEACHER Procedures * PATHOLOGY/CYTOLOGY REPORT ORDER(Performed 05/14/2022) * PATHOLOGY/CYTOLOGY REPORT ORDER(Performed 05/14/2022) * PATHOLOGY/CYTOLOGY REPORT ORDER(Performed 05/14/2022) * PATHOLOGY/CYTOLOGY REPORT ORDER(Performed 05/14/2022) * LAB RESULTS ORDER(Performed 05/08/2022) * XR KNEE BILAT 3VW(Performed 08/11/2013) Performed for Osteoarthrosis, unspecified whether generalized or localized, lower leg * BASIC METABOLIC PANEL (CALCIUM TOTAL)(Performed 02/15/2007) * LIPID PROFILE(Performed 02/15/2007) Results * PATHOLOGY/CYTOLOGY REPORT ORDER (05/14/2022) Only the most recent of4 resultswithin the time period is included. 05/14/2022 Narrative 05/14/2022 Ordered by an unspecified provider. Scanned Document LAB - PATHOLOGY/CYTO LOGY ORDERABLES * LAB RESULTS ORDER (05/08/2022) 05/08/2022 Narrative 05/08/2022 Ordered by an unspecified provider. Scanned Document LAB - THERAPEUTIC DR SOSA MONITORING ORDERABLES * XR KNEE BILAT 3 VIEWS (08/11/2013 12:17 PM CDT) Anatomical Region Laterality Modality Lower Extremity Radiographic Chapis ging Narrative 08/11/2013 12:18 PM CDT Anel Otero, RT(R) 08/11/2013 12:18 PM See progress notes for results Andrés Sanchez [facility] ORDERABLES * (ABNORMAL) BASIC METABOLIC PANEL (CALCIUM TOTAL) (02/15/2007 10:52 AM FOOD AND NUTRITION TEACHER) Glucose 104(H) 65 - 99 mg/dL [facility] [...] Comment: REPORT COMMENT: FASTING Test Performed at: [facility] [address] [place] [address] RENATO CHEUNG MD 02/15/2007 10:5 2 AM FOOD AND NUTRITION TEACHER 02/15/2007 9:44 PM FOOD AND NUTRITION TEACHER Juan R Hoang II, MD LAB - CHEMISTRY ORD ERABLES [facility] [address] [place] [address] * (ABNORMAL) LIPID PROFILE (02/15/2007 10:52 AM FOOD AND NUTRITION TEACHER) Triglycerides 150(H) <150 mg/dL [facility] Comment: Test Performed at: [facility] [address] [place] [address] RENATO CHEUNG MD Cholesterol 209(H) 125 - 200 mg/dL [facility] HDL Cholesterol 45 > OR = 40 mg/dL [facility] LDL Calculated 134(H) <130 mg/dL (calc) [facility] Comment: DESIRABLE RANGE <100 MG/DL FOR PATIENTS WITH CHD OR DIABETES AND <70 MG/DL FOR DIABETIC PATIENTS WITH KNOWN HEART DISEASE. CHOL/HDLC RATIO 4.6 < OR = 5.0 (calc) [facility] 02/15/2007 10:5 2 AM FOOD AND NUTRITION TEACHER 02/15/2007 9:44 PM FOOD AND NUTRITION TEACHER Juan R Hoang II, MD LAB - CHEMISTRY ORD ERABLES Performing Organization Address City/State/[facility] Co de Phone Number [facility] [address] [place] [phone] Care Teams Commercial Diver Relationship Specialty Start Date End Date Keesha Sorensen MD [address] [facility] [address] [place] [address] PCP - General 04/02/22 Renato Mckenzie MD Orthopedic Surgery 04/09/11
--- OUTSIDE RECORDS SUMMARY | 2024-03-29 15:07 | XMS_ITS | Referral Summary ---
Author Organization [facility] Address [address] [place] [address] Care Team Providers Care Cable Splicing Technician Name Role Phone Jayy Herrera MD Unavailable [phone] Keesha Sorensen MD Primary Care Provider [phone] Allergies Active Allergy Reactions Criticality Noted Date [...] request. Assessment & Plan (03/06/2020 5:15 PM GAS ENGINE OPERATOR COMPRESSORS): Pertinent diabetes labs reviewed: Lab Results Component [...] adjustments. Assessment & Plan (01/26/2019 5:59 PM GAS ENGINE OPERATOR COMPRESSORS): Patient was taking her insulin 10 units tonight. However she stop taking the metformin because of diarrhea. And she has been off of the metformin for a month. So today I changed her over to synjardy which is a combination medication to see if it will help without the diarrhea. Assessment & Plan (12/29/2018 11:12 AM GAS ENGINE OPERATOR COMPRESSORS): Patient is currently taking metformin 500 mg twice a day we will increase that to a 1000 mg twice a day in a couple of weeks. She is also taking Lantus insulin 10 units daily. She is working on eating only 40 carbs per meal per day. Systolic murmur 08/26/2017 Assessment & Plan (03/06/2020 5:14 PM GAS ENGINE OPERATOR COMPRESSORS): Still present on exam today, no worse. [...] later. Assessment & Plan (01/26/2019 5:58 PM GAS ENGINE OPERATOR COMPRESSORS): Obesity is unchanged. Discussed the patient's BMI. The BMI is above average; BMI management plan is completed. General weight loss/lifestyle modification strategies discussed (elicit support from others; identify saboteurs; non-food rewards, etc). Assessment & Plan (12/29/2018 11:11 AM GAS ENGINE OPERATOR COMPRESSORS): Obesity is unchanged. Discussed the patient's BMI. The BMI is above average; BMI management plan is completed. General weight loss/lifestyle modification strategies discussed (elicit support from others; identify saboteurs; non-food rewards, etc). Assessment & Plan (03/07/2018 9:07 PM GAS ENGINE OPERATOR COMPRESSORS): Aware / working on weight loss. First [...] meds. Assessment & Plan (03/06/2020 5:15 PM GAS ENGINE OPERATOR COMPRESSORS): Most recent lipid profile reviewed: Lab Results [...] rosuvastatin. Assessment & Plan (01/26/2019 5:58 PM GAS ENGINE OPERATOR COMPRESSORS): Started on Crestor not only for cholesterol but for her diabetes. Assessment & Plan (12/29/2018 11:11 AM GAS ENGINE OPERATOR COMPRESSORS): Will start a statin at this time. [...] 08/25/2019 Assessment & Plan (12/29/2018 11:12 AM GAS ENGINE OPERATOR COMPRESSORS): I, Elizabeth Majano, WEB SIZER have personally reviewed pertinent Hospital/ER data including [...] 08/25/2019 Assessment & Plan (12/21/2018 12:27 PM GAS ENGINE OPERATOR COMPRESSORS): Discussed with Dr. Holden. Send to the ER. Umbilical hernia with obstru ction, without gangrene 12/21/2018 12/29/2018 SBO (small bowel obstruction) (CMS/[facility]) 12/21/2018 08/25/2019 BMI 45.0-49.9, adult 08/26/201707/19/ 021 Assessment & Plan (03/06/2020 5:13 PM GAS ENGINE OPERATOR COMPRESSORS): .BMI Follow-up includes: nutrition counseling, exercise counseling and education provided . Assessment & Plan (11/29/2019 1:44 PM CDT): BMI Follow-up includes: nutrition counseling, exercise counseling and education provided. Assessment & Plan (01/26/2019 5:58 PM GAS ENGINE OPERATOR COMPRESSORS): Body mass index is 43.77 kg/m . BMI Follow-up includes: nutrition counseling, exercise counseling and education provided. Assessment & Plan (12/29/2018 11:09 AM GAS ENGINE OPERATOR COMPRESSORS): Body mass index is 43.78 kg/m . BMI Follow-up includes: nutrition counseling, exercise counseling and education provided. Assessment & Plan (03/07/2018 9:09 PM GAS ENGINE OPERATOR COMPRESSORS): BMI Follow-up includes: nutrition counseling, exercise counseling and education provided. Impaired fasting glucose 06/26/200810/2019 Overview (05/22/2016): IMPAIRED FASTING GLUCOSE Assessment & Plan (03/07/2018 9:08 PM GAS ENGINE OPERATOR COMPRESSORS): Lab Results Component Value Date HGBA1C 7.9 [...] HTN Assessment & Plan (03/06/2020 5:15 PM GAS ENGINE OPERATOR COMPRESSORS): Continued fair control on current regimen (chlorthalidone [...] medications. Assessment & Plan (01/26/2019 5:57 PM GAS ENGINE OPERATOR COMPRESSORS): BP 136/80 (BP Location: Left arm, Patient [...] them. Assessment & Plan (12/29/2018 11:10 AM GAS ENGINE OPERATOR COMPRESSORS): BP 134/80 (BP Location: Right arm, Patient [...] aspirin. Assessment & Plan (03/07/2018 9:09 PM GAS ENGINE OPERATOR COMPRESSORS): Blood pressure 160/100, pulse 67, resp. rate [...] Pneumococcal Polysaccharide PPV23 10/17/2014 Td, adsorbed 11/29/1998 Social History Tobacco Use Types Packs/Day Years [...] on file Legal Sex Female 11:47 AM GAS ENGINE OPERATOR COMPRESSORS Gender Identity Not on file Sexual Orientation [...] 10/25/2020 10:43 AM CDT Plan of Treatment Not on file Procedures Procedure Name Priority Date/Time Associated Diagnosis Comments POCT HEMOGLOBIN A1C Routine 10/25/2020 11:31 AM CDT Type 2 diabetes mellitus with hyperglycemia, without long-term current use of insulin ([facility]) (HCC) EGFR Routine 08/02/2020 11:28 AM CDT [...] 11:28 AM CDT 08/02/2020 1:28 PM CDT us Sharmila Carter DO LAB BLOOD ORDERABLES Final Result [facility] ([place]) [address] [facility] [place] [address] * Albumin Creatinine Ratio, Urine (08/02/2020 11:28 AM CDT) Albumin Ur <12.0 mg/L [facility] AM [facility] ([place]) Comment: Interpretive Data No reference range established. Current interpretive data was last revised 2018. Testing performed by: [address] [address] Creatinine Ur 80.1 mg/dL [facility] ([place]) Comment: Interpretive Data No reference range established. Current interpretive data was last revised 2018. Testing performed by: [address] [address] Albumin Creatinine Ratio, Ur <15 1 - 29 mg/g [facility] ([place]) Comment:Testing performed by : [address] [id number] Urine 08/02/2020 11:2 8 AM CDT 08/02/2020 7:42 PM CDT us Sharmila Murillo Raul DO LAB URINE ORDERABLES Final Result [facility] ([place]) [address] [facility] [place] [address] * (ABNORMAL) Lipid panel (08/02/2020 11:28 AM CDT) Cholesterol 162 30 - 199 mg/dL [facility] ([place]) Comment: Interpretive Data [...] 2017. Non-HDL Cholesterol 123 mg/dL [facility] ([place]) Comment: Interpretive Data [...] on 2017. Chol/HDL ratio 4 CM OR[facility] ([place]) Blood specimen (specimen) 08/02/2020 11:28 AM CDT 08/02/2020 1:28 PM CDT us Sharmila Carter DO LAB BLOOD ORDERABLES Final Result BRYAN [facility]ONE[facility]UTT) [address] [facility] [place] [address] * Diabetic Eye Exam (03/08/2020) us Historical Provider HEALTH MAINTENANCE Final Result * Hepatitis C antibody (08/25/2019 10:11 AM CDT) [facility] Hep C Ab Nonreactive Nonreactive [facility] [...] last revised on 2019. Testing performed by: [facility], [address] [place] [address]., [id number] Blood specimen (specimen) 08/25/2019 10:11 AM CDT 08/25/2019 4:15 PM CDT Result [facility] Alberto Holden MD LAB MICROBIOLOGY - GENERAL ORD ERABLES Final Result Performing Organization Address City/State/[facility] Co de Phone Number [facility] [address] [facility] Department [place] [address] * DIABETES FOOT EXAM (12/29/2018) [facility] Diabetic Foot Exam Normal Result [facility] Provider HEALTH MAINTENANCE Final Result * COLONOSCOPY (07/29/2016) [facility] Colonoscopy Unknown Comment:Patient cannot recal l. Anatomical Region Laterality Modality Other Result [facility] José HYLTON HEALTH MAINTENANCE Final Result * MAMMOGRAPHY (07/29/2016) [facility] Mammogram Unknown Comment:Patient declined. Anatomical Region Laterality Modality Other Historical Provider HEALTH MAINTENANCE Final Result from Last 3 Months or Most Recently Relevant to Health Maintenance Insurance [facility] MEDICARE [facility] Address: [address] [address] [place] [address] [facility] REF [facility] Address: [address] [address] [place] [address] [facility] Advance Directives For more information, please contact: [phone] * Full Code (Latest Code Status on File) Date Activated Date Inactivated Comments 12/21/2018 6:10 PM 12/24/2018 5:48 PM Care Teams Cable Splicing Technician Relationship Specialty Start Date End Date Keesha Sorensen MD [address] [place] [address] PCP - General Internal Medicine 11/27/21 Jayy Herrera MD [address] [facility] [address], [place] [address] Referring Physician Ophthalmology 07/19/20
--- OUTSIDE RECORDS SUMMARY | 2024-03-29 15:08 | XMS_ITS | Clinical Summary ---
Author Organization [facility] Address [address] [place] [address] Care Team Providers Care Security Checker Name Role Phone Keesha Sorensen MD Primary Care Provider [phone] Allergies Active Allergy Reactions Criticality Noted Date Comments Lisinopril Cough 11/22/2020 Reaction: Cough, Metformin Diarrhea Low 08/02/2020 Medications Glucose Blood (PRECISION QID TEST) test strip 2020 Active B-D ULTRA-FINE 33 LANCETS [facility] [place] [facility] Use one device daily for testing. 2020 Active vitamin D3, cholecalciferol, (VITAMIN D) 1000 UNIT Tab tabletIndications:Vanesa min D deficiency Take 2 tablets (2,000 Units total) by mouth daily. 30 tablet 2021 Active glipiZIDE 2.5 MG TabIndications:Type 2 diabetes mellitus with hyperglycemia, without long-term current use of insulin ([facility]HS/[facility]) Take 2.5 mg by mouth every morning before breakfast. 90 tablet 1 2023 Active Additional Information Patient not taking.Reported on 01/29/2024 terbinafine (LAMISIL) 250 MG tablet Take 1 tablet (250 mg total) by mouth daily. 2023 Active rosuvastatin (CRESTOR) 5 MG tabletIndications:Dysl ipidemia with low high density lipoprotein (HDL) cholesterol with hypertriglyceridemia due to type 2 diabetes mellitus ([facility] HHS/HCC) TAKE 1 TABLET(5 MG) BY MOUTH EVERY NIGHT AT BEDTIME 90 tablet 1 2024 Active metoprolol succinate ER (TOPROL-XL) 50 MG 24 hr tabletIndications:Hype rtension associated with diabetes (CMS/HCC HHS/HCC) TAKE 1 AND 1/2 TABLETS(75 MG) BY MOUTH DAILY 135 tablet 1 2024 Active chlorthalidone (HYGROTEN) 25 MG tabletIndications:Hype rtension associated with diabetes (CMS/HCC HHS/HCC) TAKE 1 TABLET(25 MG) BY MOUTH DAILY 90 tablet 1 2024 Active chlorthalidone (HYGROTEN) 25 MG tabletIndications:Hype rtension associated with diabetes (CMS/HCC HHS/HCC) Take 1 tablet (25 mg total) by mouth daily. 90 tablet 1 03/26 Discontinued metoprolol succinate ER (TOPROL-XL) 50 MG 24 hr tabletIndications:Hype rtension associated with diabetes (CMS/HCC HHS/HCC) Take 1 tablet (50 mg total) by mouth daily. 90 tablet 1 03/20 Discontinued rosuvastatin (CRESTOR) 5 MG tabletIndications:Dysl ipidemia with low high density lipoprotein (HDL) cholesterol with hypertriglyceridemia due to type 2 diabetes mellitus (CMS/HCC HHS/HCC) Take 1 tablet (5 mg total) by mouth nightly at bedtime. 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 We will aim for A1c less than 7%. Systolic murmur 08/26/2017 Overview (11/22/2020): Last Assessment & Plan: Still present on exam today, no worse. Echo was surprisingly normal. Class 3 severe obesity due t o excess calories with serious comorbidity and body mass index (BMI) of 45.0 to 49.9 in adult ([facility]) 07/02/2013 Overview (11/13/2021): -Pt has elevated weight with BMI Body mass index is 43.77 kg/m ., and will need to work hard on reducing carbohydrates and total calories. -You may use the free smart phone apps such as TravelPi to help track calories and try to [...] per week and 5 pounds per month. Dyslipidemia with low high d ensity lipoprotein (HDL) cholesterol with hypertriglyceridemia due to type 2 diabetes mellitus ([facility]) 07/02/2013 Overview (06/18/2021): On rosuvastatin 20 mg daily; will aim for LDL less than 70; at goal. Generalized osteoarthritis 07/02/2013 Overview (11/22/2020): GENERAL OSTEOARTHROSIS Hypertension associated with diabetes ([facility] H HS/[facility]) 07/02/2013 Overview (06/18/2021): Not controlled; continue with metoprolol, chlorthalidone and losartan with close follow up. Osteoarthritis of knee 02/16/2009 Overview (11/22/2020): Knee osteoarthritis Encounters Date Type Department Care Team Description 01/29/2024 10:00 AM TRANSIT MIXER OPERATOR Office Visit [facility] [place] [address] [place] [address] Keesha Sorensen MD Follow Up (Chronic medical issues); Type 2 Diabetes; Hypertension; Hyperlipidemia; Arthritis 01/29/2024 Telephone [facility] - [place] [address] [place] [address] Keesha Sorensen MD Orders 01/29/2024 Travel 12/30/2023 Scan HEALTH INFO SRVCS Scanned, [facility] (SCAN) from Last 3 Months Immunizations Name Administration Dates Next Due Abrysvo Respiratory Syncytia l Virus (RSV) 0.5 mL, PF 12/17/2022 Influenza (Generic) 11/28/2015,11/07/2013 PFIZER COVID-19 (ORIGINAL FORMULATION, PURPLE CAP) mRNA, LNP-S, PF, 30 MCG/0.3 ML DOSE 12/30/2021,11/22/2020,04/21/2020,2020 Pneumococcal (Pneumovax 23) 10/17/2014 Td (Tenivac) preservative free 11/29/1998 Family History Medical History Relation Comments Heart Disease Father Thyroid Mother Thyroid Sister Relation Status Comments Father Alive Mother Alive Sister Alive Social History Tobacco Use Types Packs/Day Years Used Date Smoking Tobacco: Never Smokeless Tobacco: Never Tobacco Cessation:Counseling Given: Yes Comments:counseled by Dr Sorensen Alcohol Use Standard Drinks/Week Comments Yes 0 (1 standard drink = 0.6 oz pur e alcohol) rarely PHQ-2 Answer Date Recorded Patient Health Questionnaire-2 Score 0 02/26/2022 Comments No Sex and Gender Information Value Date Recorded Sex Assigned at Not on file Legal Sex Female 1:05 PM CDT Gender Identity Not on file Sexual Orientation Not on file Last Filed Vital Signs Vital Sign Reading Time Taken Comments Blood Pressure 137/80 01/29/2024 9:47 AM TRANSIT MIXER OPERATOR Pulse 62 01/29/2024 9:47 AM TRANSIT MIXER OPERATOR Temperature 36.1 C (96.9 F) 01/29/2024 9:47 AM TRANSIT MIXER OPERATOR Respiratory Rate 16 01/29/2024 9:47 AM TRANSIT MIXER OPERATOR Oxygen Saturation 99% 01/29/2024 9:47 AM TRANSIT MIXER OPERATOR Inhaled Oxygen Concentration - - Weight 100.1 kg (220 lb 9.6 oz) 01/29/2024 9:47 AM TRANSIT MIXER OPERATOR Height 162.6 cm (5' 4 ) 01/29/2024 9:47 AM TRANSIT MIXER OPERATOR Body Mass Index 37.87 01/29/2024 9:47 AM TRANSIT MIXER OPERATOR Plan of Treatment Upcoming Encounters Date Type Department Care Team (Late st Contact Info) Description 09/02/2024 10:00 AM CDT Office Visit [facility] - [place] [address] [place] [address] [address] [place] [address] Keesha Sorensen MD [address] [facility] [address] [place], [place] [id number] Health Maintenance Due Date Last Done Comments Mammogram Screening 1991 Zoster Vaccines (1 of 2) 07/09/2001 Annual Medicare Wellness Visit 07/09/2016 Colorectal Cancer Screening FIT-DNA (3 Years) 12/11/2023 12/10/2020, 12/10/2020 PHQ-2 (Physician [facility]) 02/17/2024 Hemoglobin A1C 07/29/2024 01/29/2024, 08/16, 02/27/2023, Additional history exists COVID-19 Vaccine ( season) 2025 12/30/2021, 11/22/2020, 04/21/2020, Additional history exists Postponed from 10/18/2023 (Patient Refused) DTaP, Tdap and Td Vaccines (1 - Tdap) 01/28/2025 11/29/1998 Postponed from 11/30/1998 (Patient Refused) Influenza Adult (#1) 2025 11/28/2015, 11/08/19 14 Postponed from 11/17/2023 (Patient Refused) Kidney Health Evaluation 01/28/2025 01/29/2024 Lipid Panel 01/28/2025 01/29/2024, 08/16, 02/27/2023, Additional history exists Diabetes: Retinopathy Eye Exam 05/11/2025 05/12/2023, 03/12/2021, 03/08/2020 Pneumococcal Vaccine: 65+ Years (2 of 2 - PCV) 02/23/2026 10/17/2014 Postponed from 10/18/2015 (Patient Refused) Hepatitis C Completed 12/18/2020 Dexa Scan (General) Completed 03/18/2021 RSV Immunization or 60+ Years Completed 12/17/2022 Meningococcal B Vaccine Aged Out No l onger eligible based on patient's age to complete this topic Meningococcal Vaccine Aged Out No denny shalom eligible based on patient's age to complete this topic RSV Immunizations Under 20 Months Aged Out No longer eligible based on patient's age to complete this topic Procedures Procedure Name Priority Date/Time Associated Diagnosis Comments ALBUMIN URINE RANDOM W/CREATININE Routine 01/29/2024 10:45 AM TRANSIT MIXER OPERATOR General medical exam HEMOGLOBIN, GLYCOSYLATED Routine 01/29/2024 10:36 AM TRANSIT MIXER OPERATOR General medical exam Drug therapy TSH W/REFLEX Routine 01/29/2024 10:36 AM TRANSIT MIXER OPERATOR General medical exam Drug therapy LIPID PANEL Routine 01/29/2024 10:36 AM TRANSIT MIXER OPERATOR General medical exam Drug therapy COMPREHENSIVE METABOLIC PANEL Routine 01/29/2024 10:36 AM TRANSIT MIXER OPERATOR General medical exam Drug therapy CBC W/DIFF AUTOMATED Routine 01/29/2024 10:36 AM TRANSIT MIXER OPERATOR General medical exam Drug therapy COLLECTION VENOUS BLOOD VENIPUNCTURE Routine 01/29/2024 10:22 AM TRANSIT MIXER OPERATOR General medical exam Drug therapy URINALYSIS AUTO DIP Routine 01/29/2024 General medical exam Drug therapy OUTSIDE LAB (SCAN ORDER) 12/30/2023 DIABETIC RETINOPATHY EXAM (NEGATIVE)(SCAN ORDER) Routine 05/12/2023 BONE DENSITY GENERIC (SCAN ORDER) 03/18/2021 HEPATITIS C ANTIBODY W/RFX TO HCV RNA Routine 12/18/2020 12:29 PM CDT COLOGUARD (EXACT SCIENCE) Routine 12/10/2020 6:47 AM CDT Screen for colon cancer from Last 3 Months or Most Recently Relevant to Health Maintenance Results * ALBUMIN/CREATININE RATIO, RANDOM URINE (01/29/2024 10:45 AM TRANSIT MIXER OPERATOR) [facility] MICROALBUMIN (U) 14.0 <20 MG/L 01/29/20 7:59 PM TRANSIT MIXER OPERATOR [facility] CREATININE RANDOM (U) 219.8 MG/DL 01/29/2024 7:59 PM TRANSIT MIXER OPERATOR [facility] ALBUMIN/CREAT RATIO 6.4 <30 MG/G 01/29/2024 7:59 PM TRANSIT MIXER OPERATOR [facility] URINE SPECIMEN / Unknown 01/29/2024 10:45 AM TRANSIT MIXER OPERATOR us Keesha Sorensen MD URINE ORDERABLES Final Result Performing Organization Address City/[facility]/ZIP Co de Phone Number [facility] [address] [place] [address], * TSH W/REFLEX (01/29/2024 10:36 AM TRANSIT MIXER OPERATOR) [facility] TSH 2.525 0.358 - 3.740 uIU/ML 01/29/2024 7:58 PM TRANSIT MIXER OPERATOR [facility] 01/29/2024 10:3 6 AM TRANSIT MIXER OPERATOR us Keesha Sorensen MD LABORATORY Final Result [facility] [address] [place] [address], * (ABNORMAL) HEMOGLOBIN, GLYCOSYLATED (01/29/2024 10:36 AM TRANSIT MIXER OPERATOR) [facility] HGB A1C 8.1(H) 4.5 - 6.2 % 01/29/2024 8:00 PM TRANSIT MIXER OPERATOR [facility] ESTIMATED AVG GLUCOSE 186(H) 74 - 106 MG/DL 01/29/2024 8:00 PM TRANSIT MIXER OPERATOR [facility] 01/29/2024 10:3 6 AM TRANSIT MIXER OPERATOR Keesha Sorensen MD LABORATORY Final Result [facility] [address] [place] [address], * (ABNORMAL) COMPREHENSIVE METABOLIC PANEL (01/29/2024 10:36 AM TRANSIT MIXER OPERATOR) Pathologist [facility] SODIUM S/P/B 143 136 - 145 MMOL/L 01/29/2024 7:58 PM TRANSIT MIXER OPERATOR [facility] POTASSIUM S/P/B 3.8 3.5 - 5.1 MMOL/L 01/29/2024 7:58 PM TRANSIT MIXER OPERATOR [facility] CHLORIDE S/P/B 103 98 - 107 MMOL/L 01/29/2024 7:58 PM TRANSIT MIXER OPERATOR [facility] CO2 31.5 21 - 32 MMOL/L 01/29/2024 7:58 PM TRANSIT MIXER OPERATOR [facility] GLUCOSE 171(H) 70 - 99 MG/DL 01/29/2024 7:58 PM TRANSIT MIXER OPERATOR [facility] BUN 18 7 - 18 MG/DL 01/29/2024 7:58 PM TRANSIT MIXER OPERATOR [facility] CREATININE S/P/B 1.01 0.55 - 1.02 MG/DL 01/29/2024 7:58 PM TRANSIT MIXER OPERATOR [facility] CALCIUM S/P/B 9.1 8.4 - 10.5 MG/DL 01/29/2024 7:58 PM TRANSIT MIXER OPERATOR [facility] BILIRUBIN TOTAL S/P/B 1.1(H) 0.2 - 1.0 MG/DL 01/29/2024 7:58 PM TRANSIT MIXER OPERATOR [facility] ALKALINE PHOSPHATASE S/P/B 95 55 - 142 U/L 01/29/2024 7:58 PM TRANSIT MIXER OPERATOR [facility] [place] AST 17 15 - 37 U/L 01/29/2024 7:58 PM TRANSIT MIXER OPERATOR [facility] [place] ALT 27 14 - 59 U/L 01/29/2024 7:58 PM TRANSIT MIXER OPERATOR [facility] [place] TOTAL PROTEIN S/P/B 6.8 6.4 - 8.2 G/DL 01/29/2024 7:58 PM TRANSIT MIXER OPERATOR [facility] [place] ALBUMIN S/P/B 3.8 3.4 - 5.0 G/DL 01/29/2024 7:58 PM TRANSIT MIXER OPERATOR [facility] [place] ANION GAP 8.5 5 - 15 MMOL/L 01/29/2024 7:58 PM TRANSIT MIXER OPERATOR [facility] [place] Comment:REFERENCE RANGE NOT ESTABLISHED OSMOLALITY (CALC) 302 MOSM/KG 024 7:58 PM [facility] [place] Comment:REFERENCE RANGE NOT ESTABLISHED GFR ESTIMATE 59(L) >90 ML/MIN/1. 73 M2 01/29/2024 7:58 PM TRANSIT MIXER OPERATOR [facility] [place] GFR NOTES GFR REFERENCE S: 01/29/2024 7:58 PM TRANSIT MIXER OPERATOR [facility] Comment: THE ESTIMATED GFR IS CALCULATED USING THE 2020 CKD-EPI EQUATION. THE FOLLOWING CATEGORIES FOR GRADING RENAL FUNCTION ARE RECOMMENDED BY THE INTERNATIONAL SOCIETY OF NEPHROLOGY (KDIGO 2012 CLINICAL PRACTICE GUIDELINE). G1,NORMAL OR HIGH: >89 ml/min/1.73 m2 G2,MILDLY DECREASED: 60-89 ml/min/1.73 m2 G3A,MILDLY TO MODERATELY DECREASED: 45-59 ml/min/1.73 m2 G3B,MODERATELY TO SEVERELY DECREASED: 30-44 ml/min/1.73 m2 G4,SEVERELY DECREASED: 15-29 ml/min/1.73 m2 G5,KIDNEY FAILURE: <15 ml/min/1.73 m2 01/29/2024 10:3 6 AM TRANSIT MIXER OPERATOR Keesha Sorensen MD LABORATORY Final Result [facility] [address] [place] [address], * LIPID PANEL (01/29/2024 10:36 AM TRANSIT MIXER OPERATOR) [facility] CHOLESTEROL 154 <200 MG/DL 01/29/2024 7:58 PM TRANSIT MIXER OPERATOR [facility] TRIGLYCERIDES 100 <150 MG/DL 01/29/2024 7:58 PM TRANSIT MIXER OPERATOR [facility] HDL 54 >40 MG/DL 01/29/2024 7:58 PM TRANSIT MIXER OPERATOR [facility] LDL-C 80 <100 MG/DL 01/29/2024 7:58 PM TRANSIT MIXER OPERATOR [facility] VLDL CALCULATION 20 5 - 28 MG/DL 01/29/2024 7:58 PM TRANSIT MIXER OPERATOR [facility] CHOL/HDL RATIO 2.9 0.0 - 4.0 01/29/2024 7:58 PM [facility] LDL/HDL 1.5 0.41 - 2.13 01/29/2024 7:58 PM TRANSIT MIXER OPERATOR [facility] NON HDL CHOLESTEROL 100 <140 MG/DL 01/29/2024 7:58 PM TRANSIT MIXER OPERATOR [facility] 01/29/2024 10:3 6 AM TRANSIT MIXER OPERATOR Keesha Sorensen MD LABORATORY Final Result [facility] [address] [place] [address], * (ABNORMAL) CBC W/DIFF AUTOMATED (01/29/2024 10:36 AM TRANSIT MIXER OPERATOR) [facility] WBC 6.11 4.00 - 10.80 x10'3/uL 01/29/2024 7:38 PM TRANSIT MIXER OPERATOR [facility] RBC 4.83 4.10 - 5.40 x10'6/uL 01/29/2024 7:38 PM [facility] HGB 13.8 12.0 - 16.0 G/DL 01/29/2024 7:38 PM [facility] HCT 42.6 36.0 - 47.0 % 01/29/2024 7:38 PM [facility] MCV 88.2 78.0 - 100.0 FL 01/29/2024 7:38 PM [facility] MCH 28.6 27.0 - 31.0 PG 01/29/2024 7:38 PM [facility] MCHC 32.4(L) 33.0 - 36.0 G/DL 01/29/2024 7:38 PM [facility] RDW 13.2 11.5 - 14.5 % 01/29/2024 7:38 PM [facility] PLT 167 150 - 350 x10'3/uL 01/29/2024 7:38 PM [facility] MPV 10.7(H) 7.4 - 10.4 FL 01/29/2024 7:38 PM [facility] DIFFERENTIAL TYPE AUTOMATED DIFFERENTIAL 01/29/2024 7:38 PM [facility] NEUTROPHILS % 75.6 % 01/29/2024 7:38 PM [facility] LYMPHOCYTES % 16.2 % 01/29/2024 7:38 PM [facility] MONOCYTES % 6.2 % 01/29/2024 7:38 PM [facility] EOSINOPHILS % 1.5 % 01/29/2024 7:38 PM [facility] BASOPHILS % 0.3 % 01/29/2024 7:38 PM [facility] IMMATURE GRANS % 0.2 % 01/29/2024 7:38 PM [facility] ABS. NEUTROPHILS 4.62 1.60 - 8.30 x10'3/uL 01/29/2024 7:38 PM TRANSIT MIXER OPERATOR [facility] ABS. LYMPHOCYTES 0.99 0.80 - 4.70 x10'3/uL 01/29/2024 7:38 PM TRANSIT MIXER OPERATOR [facility] ABS. MONOCYTES 0.38 0.00 - 1.50 x10'3/uL 01/29/2024 7:38 PM TRANSIT MIXER OPERATOR [facility] ABS. EOSINOPHILS 0.09 0.00 - 0.40 x10'3/uL 01/29/2024 7:38 PM TRANSIT MIXER OPERATOR [facility] ABS. BASOPHILS 0.02 0.00 - 0.20 x10'3/uL 01/29/2024 7:38 PM TRANSIT MIXER OPERATOR [facility] ABS. IMMATURE GRANULOCYTES 0.01 0.00 - 0.03 x10'3/uL 01/29/2024 7:38 PM TRANSIT MIXER OPERATOR [facility] 01/29/2024 10:3 6 AM [facility] Keesha Sorensen MD LABORATORY Final Result [facility] [address] [place] [address], * (ABNORMAL) URINALYSIS AUTO DIP (01/29/2024) COLOR (U) YELLOW YELLOW [address], [facility] TRANSPARENCY CLEAR CLEAR [address], [facility] GLUCOSE (U) NEGATIVE NEGATIVE MG/DL [address], [facility] BILIRUBIN (U) NEGATIVE NEGATIVE MG-[address], [facility] KETONES MG/DL (U) NEGATIVE NEGATIVE MG/DL [address], [facility] SPECIFIC GRAVITY (U) 1.025 1.001 - 1.035 [address], [facility] BLOOD (U) NEGATIVE(A) NEGATIVE [address], [facility] U PH 6.5 5.0 - 9.0 [address], [facility] PROTEIN (U) NEGATIVE NEGATIVE mg/dL [address], [facility] UROBILINOGEN 1.0 0.2 - 1.0 EU/dL = mg/dL [address], [facility] NITRITES NEGATIVE NEGATIVE MG/DL [address], [facility] LEUKOCYTES (U) NEGATIVE NEGATIVE MG-[address], [facility] URINE SPECIMEN OBTAINED BY CLEAN CATCH PROCEDURE / Unknown 01/29/2024 us Keesha Sorensen MD URINE ORDERABLES Final Result Performing Organization Address City/[facility]/ZIP Co de Phone Number [address], [place] [address] [place] [address], * OUTSIDE LAB (SCAN ORDER) (12/30/2023) 12/30/2023 [email or web address] Scanned SCANNING Final Resu lt * DIABETIC RETINOPATHY EXAM (NEGATIVE) (05/12/2023) [email or web address] Scanned SCANNING Final Resu lt Performing Organization Address City/[facility]/ZIP Co de Phone Number [facility] * BONE DENSITY GENERIC (03/18/2021) Anatomical Region Laterality Modality Other 03/18/2021 Narrative 03/18/2021 Ordered by an unspecified provider. us Documents Scanned SCANNING Final Result * HEPATITIS C ANTIBODY W/RFX TO HCV RNA (12/18/2020 12:29 PM CDT) HEPATITIS C AB NON-REACTI VE NON-REACT ISAURA [facility] SIGNAL TO CUTOFF 0.02 <[address] [facility] Comment: HCV antibody was non-reactive. There is no laboratory evidence of HCV infection. In most cases, no further action is required. However, if recent HCV exposure is suspected, a test for HCV RNA (test code 23370) is suggested. For additional information please refer to [email or web address] (This link is being provided for informational/ educational purposes only.) 12/18/2020 12:2 9 PM CDT 12/18/2020 12:33 PM CDT Narrative [facility] - 12/19/2020 3:08 PM CDT FASTING:YES FASTING: YES Keesha Sorensen MD LABORATORY Final Result [facility] [address] [address] * (ABNORMAL) COLOGUARD ([employer]) (12/10/2020 6:47 AM CDT) COLOGUARD RESULT Positive( A) Negative [facility] (CLIA #:[id number]) Comment: POSITIVE TEST RESULT. A positive Cologuard result should be followed with a colonoscopy or visual examination of the colon. The normal value (reference range) for this assay is negative. TEST DESCRIPTION: Composite algorithmic analysis of stool DNA-biomarkers with hemoglobin immunoassay. Quantitative values of individual biomarkers are not reportable and are not associated with individual biomarker result reference ranges. Cologuard is intended for colorectal cancer screening of adults of either sex, 45 years or older, who are at average-risk for colorectal cancer (CRC). Cologuard has been approved for use by the U.S. FDA. The performance of Cologuard was established in a cross sectional study of average-risk adults aged 50-84. Cologuard performance in patients ages 45 to 49 years was estimated by sub-group analysis of near-age groups. Colonoscopies performed for a positive result may find as the most clinically significant lesion: colorectal cancer [4.0%], advanced adenoma (including sessile serrated polyps greater than or equal to 1cm diameter) [20%] or non- advanced adenoma [31%]; or no colorectal neoplasia [45%]. These estimates are derived from a prospective cross-sectional screening study of 10,000 individuals at average risk for colorectal cancer who were screened with both Cologuard and colonoscopy. (Fidel Vargas al, N Engl J Med 2014;370(14):4042-6340.) Cologuard may produce a false negative or false positive result (no colorectal cancer or precancerous polyp present at colonoscopy follow up). A negative Cologuard test result does not guarantee the absence of CRC or advanced adenoma (pre-cancer). The current Cologuard screening interval is every 3 years. ([place] [employer] and U.S. Multi-Society Task Force). Cologuard performance data in a 10,000 patient pivotal study using colonoscopy as the reference method can be accessed at the following location: [email or web address]/results. Additional description of the Cologuard test process, warnings and precautions can be found at www.cologuard.com. Stool specimen (specimen) STOOL SPECIMEN / Unknown 12/10/2020 6:47 AM CDT 12/11/2020 10:02 PM CDT Keesha Sorensen MD BODY FLUIDS AND STOOLS ORDERABLE S Final Result [facility]) [address] [place] [address], [facility] (CLIA #:[id number]) [address] [place] [address] from Last 3 Months or Most Recently Relevant to Health Maintenance Insurance [facility] Care Teams Security Checker Relationship Specialty Start Date End Date Keesha Sorensen MD [facility] [address] PCP - General INTERNAL MEDICINE 11/22/20
== END 2024-03-29 14:17 | disposition home or self-care (01) ==
PROVIDERS: PCP Internal Medicine; Visit Provider Podiatrist Foot & Ankle Surgery
DX: B35.1 Tinea unguium (principal)
CPT/HCPCS: 36415; 84450; 84460